=== PATIENT | male | born 1965 | race Caucasian/White ===

== ENCOUNTER 2016-10-16 03:46 | Emergency (ER) | payer SELFPAY ==
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
--- NOTE | 2016-10-16 09:04 | ER NURSING DOCUMENTATION ---
Nurse's Notes [facility] Name:Cleve Harmon Age:51 yrs Sex:Male :1965 Arrival Date:10/16/2016 Time:03:46 BedTrauma-A Private MD: Diagnosis:Medical Screening Exam-Non Urgent Presentation: 10/16 03:50 Presenting complaint: Patient states: Pt states he is homeless and was planning to [facility] but started feeling cold and got sob on [facility]. Pt states he is HIV positive. Transition of care: Other [facility]. Asprin Given n/a. Care prior to arrival: None. 03:50 Acuity: MIKEY 3 mk2 03:50 Method Of Arrival: EMS: 420 mk2 Triage Assessment: 03:54 General: Appears in no apparent distress, Behavior is appropriate for age, cooperative. mk2 Pain: Denies pain. Neuro: No deficits noted. Cardiovascular: Heart tones S1 S2. Respiratory: Breath sounds are clear bilaterally. Derm: Skin is Pt legs appear red and with edema. Pt admits to neuropathy bilaterally. Historical: - Allergies: No known drug Allergies; - Home Meds: 1. None - PMHx: CVA; - PSHx: None; - Tetanus: unknown. - Immunization history: Flu Vaccine None. - Ebola Screening: : Patient negative for fever greater than or equal to 101.5 degrees Fahrenheit, and additional compatible Ebola Virus Disease symptoms. Patient denies exposure to infectious person. Patient denies travel to an Ebola-affected area in the 21 days before illness onset. No symptoms or risks identified at this time. . - Social history: Smoking status: Patient uses tobacco products, heavy tobacco smoker. Patient uses alcohol street drugs, marijuana. Screenin:00 Infectious Disease Risk HIV. Abuse screen: Denies threats or abuse. Nutritional mk2 screening: No deficits noted. Assessment: 04:00 See Triage Assessment done by same RN. mk2 07:11 Reassessment: PT sleeping, rouses easily. Pt has no complaints, does not want tg breakfast. Pt refuses oxygen. Discussed risks of hypoxia, pt verbalizes understanding. . Vital Signs: 03:56 BP 132 / 77; Pulse 87; Resp 16; Temp 98.1; Pulse Ox 93% on R/A; Weight 110.22 kg; mk2 Height 6 ft. 3 in. (190.50 cm); Pain 0/10; 07:09 BP 115 / 52 (auto/); tg 07:09 Pulse 94; Resp 20; Pulse Ox 87% on R/A; tg 03:56 Body Mass Index 30.37 (110.22 kg, 190.50 cm) mk2 ED Course: 03:47 Patient arrived in ED. ma1 03:49 Zack De La Torre MD is Attending Physician. dodie 03:50 Yvette Almazan, RN is Primary Nurse. 2 03:51 EKG done. (by ED staff). mk2 03:54 Triage completed. mk2 04:00 Arm band placed on Bed in low position Call Light in Reach Gowned HOB Elevated Side mk2 rails up x2. 04:00 Valuables Remains with patient. concession manager on. Pulse ox on. NIBP on. Warm blanket mk2 given. 04:34 Resting quietly. Physician discontinued monitoring on the pt. Pt planning to eat and mk2 sleep here until the morning. 04:34 EKG attached 2 05:46 EKG done. Reviewed by Zack De La Torre MD. 2 05:57 Report given to Report given to [place]. Pt is snoring in the room. mk2 Administered Medications: No medications were administered Outcome: 04:24 Discharge ordered by . dodie 09:00 Discharged to home ambulatory. 09:00 Condition: stable 09:00 Instructed on unable to give patient any instructions because he walked out of ED as soon as he woke up. Refused food, fluids and bathroom on his way out. 09:03 Patient left the ED. Signatures: Colton Cisse RN RN tg Meyer, John, MD MD jm Kruger, Meg, RN RN 2 Christina Mishra [facility]
== END 2016-10-16 09:03 | disposition home or self-care (01) ==
LOC: ER 03:46
DX: R07.9 Chest pain, unspecified (principal); F17.210 Nicotine dependence, cigarettes, uncomplicated; T69.9XXA Effect of reduced temperature, unspecified, initial encounter
CPT/HCPCS: 93005; 99284